=== PATIENT | male | born 2000 | race Caucasian/White ===

== ENCOUNTER 2020-03-31 08:38 | Emergency (ER) | payer OTHER ==
[~2020-03-31] VITALS: Ht 165.1 cm; Wt 65.8 kg
== END 2020-03-31 15:52 | disposition home or self-care (01) ==
LOC: EMR PED 08:38 → ER 08:45
DX: K29.70 Gastritis, unspecified, without bleeding (principal); Z03.818 Encounter for observation for suspected exposure to other biological agents ruled out